=== PATIENT | male | born 1965 | race Caucasian/White ===

== ENCOUNTER 2019-05-24 14:57 | Observation (INO) | payer SELFPAY ==
--- NOTE | 2019-05-24 15:57 | ER Document Report ---
ED Medical Screen (RME) - General Chief Complaint: Leg Pain Stated Complaint: LEG PAIN Time Seen by Provider: 05/24/19 15:53 Primary Care Provider: MIGUEL HUNG MD [Primary Care Provider] - Follow up as needed Notes: Patient is a morbidly obese 53-year-old male history of diabetes presents to the emergency department with cellulitic tissue noted to the left lower extremity. Patient states he was given Keflex and another antibiotic on Wednesday afternoon. [facility] provider placed a marker around the red area. States he has been taking antibiotics as prescribed but the redness has gone past to the marked area which is why he presents to the emergency room. Patient's denying any fevers. States he does have increased pain and swelling in his left lower extremity. Is also noted to have left calf pain. GENERAL: Alert, interacts well. No acute distress. EXTREMITIES: Moves all 4 extremities spontaneously. Generalized swelling noted left lower extremity, large area of erythema noted left lower medial aspect. No obvious fluctuance noted. Pain in left calf. I have greeted and performed a rapid initial assessment of this patient. A comprehensive ED assessment and evaluation of the patient, analysis of test results and completion of the medical decision making process will be conducted by additional ED providers. I have specifically instructed the patient or family members with the patient to immediately return to any nursing staff should anything change in the patient's condition or with their chief complaint. This medical record was dictated with voice recognizing software. There may be grammatical, syntax errors that are unintended. - Related Data Allergies/Adverse Reactions: No Known Allergies Allergy (Verified 05/24/19 15:51) Past Medical History - Past Medical History Cardiac Medical History: Reports: Hx Hypertension Endocrine Medical History: Reports: Hx Diabetes Mellitus Type 2 - Immunizations Immunizations up to date: Yes Hx Diphtheria, Pertussis, Tetanus Vaccination: Yes - will provide here Physical Exam - Vital signs Vitals: Temp Pulse Resp BP Pulse Ox 99.0 F 87 18 138/77 H 96 05/24/19 15:03 05/24/19 15:03 05/24/19 15:03 05/24/19 15:03 05/24/19 15:03 Course - Vital Signs Vital signs: Temp Pulse Resp BP Pulse Ox 99.0 F 87 18 138/77 H 96 05/24/19 15:03 05/24/19 15:03 05/24/19 15:03 05/24/19 15:03 05/24/19 15:03 Doctor's Discharge - Discharge Referrals: MIGUEL HUNG MD [Primary Care Provider] - Follow up as needed
[2019-05-24 16:39] LABS: VENOUS BLOOD BASE EXCESS 0.1 mmol/L; VENOUS BLOOD HCO3 23.5 mmol/L (20-32); VENOUS BLOOD PCO2 34.8 mmHg (35-63); VENOUS BLOOD PH 7.45 (7.30-7.42)
[2019-05-24 16:42] LABS: ABSOLUTE EOSINOPHILS # (AUTO) 0.1 10^3/uL (0.0-0.6); ABSOLUTE LYMPHOCYTES (AUTO) 1.8 10^3/uL (0.5-4.7); ABSOLUTE NEUT (AUTO) 10.9 10^3/uL (1.7-8.2); BASOPHILS % (AUTO) 0.4 % (0-2); EOSINOPHILS % (AUTO) 0.7 % (0-6); HEMATOCRIT 44.2 % (37.9-51.0); HEMOGLOBIN 15.4 g/dL (13.5-17.0); LYMPHOCYTES % (AUTO) 13.1 % (13-45); MEAN CORPUSCULAR HEMOGLOBIN 31.8 pg (27.0-33.4); MEAN CORPUSCULAR HGB CONC 34.8 g/dL (32.0-36.0); MEAN CORPUSCULAR VOLUME 91 fl (80-97); MONOCYTES % (AUTO) 7.3 % (3-13); PLATELET COUNT 187 10^3/uL (150-450); RED BLOOD COUNT 4.83 10^6/uL (4.35-5.55); RED CELL DISTRIBUTION WIDTH 12.9 % (11.5-14.0); SEGMENTED NEUTROPHILS % (AUTO) 78.5 % (42-78); TOTAL CELLS COUNTED % (AUTO) 100 %; WHITE BLOOD COUNT 13.9 10^3/uL (4.0-10.5)
[2019-05-24 16:46] LABS: INTERNATIONAL RATION (INR) 1.14; PROTHROMBIN TIME 14.7 SEC (11.4-15.4)
[2019-05-24 16:56] LABS: ALBUMIN 4.1 g/dL (3.5-5.0); ALKALINE PHOSPHATASE 86 U/L (38-126); ANION GAP 12 (5-19); ASPARTATE AMINO TRANSFERASE 32 U/L (17-59); BILIRUBIN,DIRECT 0.4 mg/dL (0.0-0.4); BILIRUBIN,TOTAL 1.2 mg/dL (0.2-1.3); BLOOD UREA NITROGEN 21 mg/dL (7-20); CALCIUM 9.6 mg/dL (8.4-10.2); CARBON DIOXIDE 26 mmol/L (22-30); CHLORIDE 99 mmol/L (98-107); GLUCOSE 150 mg/dL (75-110); POTASSIUM 4.6 mmol/L (3.6-5.0); TOTAL PROTEIN 7.8 g/dL (6.3-8.2)
[2019-05-24] MEDS ORDERED: MORPHINE SULFATE 10 MG/ML INJ IV ONE (18:09)
[2019-05-24] MEDS ORDERED: CLINDAMYCIN 900 MG/D5W RTU 900 MG/50 ML RTUPB IV ONE (18:09)
--- NOTE | 2019-05-24 18:31 | ER Document Report ---
ED Extremity Problem, Lower - General Chief Complaint: Leg Pain Stated Complaint: LEG PAIN Time Seen by Provider: 05/24/19 15:53 Primary Care Provider: MIGUEL HUNG MD [NO LOCAL MD] - Follow up as needed Notes: 53 y/o male presents with w worsening cellulitis to left lower leg. Patient states he first noticed it Wednesday. Patient has had associated chills and subjective fevers. Patient was seen by on Wednesday and was placed on Keflex and Bactrim. A line was drawn to delineate where the redness was. Patient states he noticed the redness expanding beyond the line. Patient does have a history of diabetes. TRAVEL OUTSIDE OF THE [place] IN LAST 30 DAYS: No - Related Data Allergies/Adverse Reactions: No Known Allergies Allergy (Verified 05/24/19 15:51) Home Medications: [facility] Past Medical History - Social History Smoking Status: Current Some Day Smoker Chew tobacco use (# tins/day): No Frequency of alcohol use: None Drug Abuse: None Family History: Reviewed & Not Pertinent Patient has suicidal ideation: No Patient has homicidal ideation: No - Past Medical History Cardiac Medical History: Reports: Hx Hypertension Endocrine Medical History: Reports: Hx Diabetes Mellitus Type 2 - Immunizations Immunizations up to date: Yes Hx Diphtheria, Pertussis, Tetanus Vaccination: Yes - will provide here Review of Systems - Review of Systems Notes: Constitutional: Positive for subjective fevers and chills. HENT: Negative for sore throat. Eyes: Negative for visual changes. Cardiovascular: Negative for chest pain. Respiratory: Negative for shortness of breath. Gastrointestinal: Negative for abdominal pain, vomiting or diarrhea. Genitourinary: Negative for dysuria. Musculoskeletal: Positive for left lower leg pain and swelling. Negative for back pain. Skin: Negative for rash. Neurological: Negative for headaches, weakness or numbness. 10 point ROS negative except as marked above and in HPI. Physical Exam - Vital signs Vitals: Temp Pulse Resp BP Pulse Ox 99.0 F 87 18 138/77 H 96 05/24/19 15:03 05/24/19 15:03 05/24/19 15:03 05/24/19 15:03 05/24/19 15:03 - Notes Notes: GENERAL: Well-appearing, well-nourished and in no acute distress. HEAD: Atraumatic, normocephalic. EYES: Extraocular movements intact, sclera anicteric, conjunctiva are normal. ENT: TMs normal, nares patent, oropharynx clear without exudates. Moist mucous membranes. NECK: Normal range of motion, supple without lymphadenopathy or JVD. LUNGS: Breath sounds clear to auscultation bilaterally and equal. No wheezes rales or rhonchi. HEART: Regular rate and rhythm without murmurs, rubs or gallops. EXTREMITIES: Left lower leg erythema and calor noted below knee, swelling noted, moderately tender with streaking up towards knee.. NEUROLOGICAL: Cranial nerves II through XII grossly intact. Normal speech, normal gait. PSYCH: Normal mood, normal affect. SKIN: Warm, Dry, normal turgor, no rashes or lesions noted. Course - Re-evaluation Re-evalutation: 05/24/19 53-year-old male presents with worsening cellulitis to left lower leg. Nontoxic in appearance. Mild leukocytosis. History of diabetes. Patient failed outpatient treatment with Keflex and Bactrim. Hospitalist, Dr. Smith, consulted for admission. [employer] Elham Bro to admit patient. - Vital Signs Vital signs: Temp Pulse Resp BP Pulse Ox 99.0 F 87 18 138/77 H 96 05/24/19 15:03 05/24/19 15:03 05/24/19 15:03 05/24/19 15:03 05/24/19 15:03 - Laboratory Result Diagrams: 05/24/19 16:15 05/24/19 16:15 Laboratory results interpreted by me: 05/24/19 05/24/19 05/24/19 16:15 16:15 16:15 WBC 13.9 H Absolute Neuts (auto) 10.9 H Seg Neutrophils % 78.5 H VBG pH 7.45 H VBG pCO2 34.8 L BUN 21 H Glucose 150 H Discharge - Discharge Clinical Impression: Left leg cellulitis Condition: Stable Disposition: ADMITTED OBSERVATION Admitting Provider: Saarh Unit Admitted: Medical Floor Referrals: MIGUEL HUNG MD [NO LOCAL MD] - Follow up as needed
[2019-05-24] MEDS ORDERED: MAGNESIUM HYDROXIDE SUSP 30 ML UDCUP PO PRN (18:47)
[2019-05-24] MEDS ORDERED: IPRATROPIUM/ALBUTEROL 0.5-2.5 MG/3 ML AMPUL NEB PRN (18:47)
[2019-05-24] MEDS ORDERED: ACETAMINOPHEN 325 MG TABLET PO PRN (18:47)
[2019-05-24] MEDS ORDERED: PROMETHAZINE HCL INJ 25 MG/1 ML VIAL IV PRN (18:47)
[2019-05-24] MEDS ORDERED: ONDANSETRON HCL INJ/PF 4 MG/2 ML SDV IV PRN (18:47)
[2019-05-24] MEDS ORDERED: MAG HYDROX/AL HYDROX/SIMETH SUSP 30 ML UDCUP PO PRN (18:47)
[2019-05-24] MEDS ORDERED: TEMAZEPAM 7.5 MG CAPSULE PO PRN (18:47)
[2019-05-24] MEDS ORDERED: DEXTROSE 40% GEL 15 GM TUBE PO PRN ×2 (18:47)
[2019-05-24] MEDS ORDERED: ALBUTEROL SULFATE 0.083% NEB 2.5 MG/3 ML AMPUL NEB PRN (18:47)
[2019-05-24] MEDS ORDERED: GLUCAGON,HUMAN RECOMB 1 MG INJ IM PRN (18:47)
[2019-05-24] MEDS ORDERED: NORMAL SALINE 1000 ML 1,000 ML IV PRN (18:47)
[2019-05-24] MEDS ORDERED: DEXTROSE 50%-WATER 25 GM/50 ML DISP.SYRIN IV PRN ×2 (18:47)
[2019-05-24] MEDS ORDERED: HYDRALAZINE HCL INJ/PF 20 MG/1 ML SDV IV PRN (18:51)
[2019-05-24] MEDS ORDERED: NICOTINE 21 MG/24 HR PATCH.TD24 TD PRN (18:58)
--- NOTE | 2019-05-24 18:58 | PDOC H&P ---
History of Present Illness Patient complains of: Left lower extremity erythema and pain History of Present Illness: TOMASA HERNANDEZ is a 53 year old male with a past medical history of DM 2, obesity, tobacco dependence with continuous use who presents to the emergency department today for complaint of left lower extremity erythema, edema, and tenderness. Patient was seen by urgent care and started on Bactrim and Keflex 3 days ago for cellulitis. He cellulitis was marked with a skin marker and has clearly spread more proximally and is now circumferential. Patient reports low- grade temperatures at home with slight nausea and generalized malaise. Evaluation by the emergency department revealed mild leukocytosis, normal coags, essentially unremarkable chemistry. A venous Doppler was completed; formalize report pending but per food safety technician negative for DVT. He was provided IV clindamycin and is referred to the hospitalist service for admission and management above-stated complaints of findings Past Medical History Cardiac Medical History: Reports: Hypertension Pulmonary Medical History: Reports: None EENT Medical History: Reports: None Neurological Medical History: Reports: None Endocrine Medical History: Reports: Diabetes Mellitus Type 2 Renal/ Medical History: Reports: None GI Medical History: Reports: None Musculoskeltal Medical History: Reports: None Skin Medical History: Reports: None Psychiatric Medical History: Reports: Tobacco Dependency Traumatic Medical History: Reports: None Hematology: Reports: None Infectious Medical History: Reports: None Past Surgical History Past Surgical History: Reports: None Social History Information Source: Patient Lives with: Alone Smoking Status: Current Every Day Smoker Cigarettes Packs Per Day: 1.5 Electronic Cigarette use?: No Frequency of Alcohol Use: None Hx Recreational Drug Use: No Drugs: None Hx Prescription Drug Abuse: No - Advance Directive Resuscitation Status: Full Code Family History Family History: Reviewed & Not Pertinent Parental Family History Reviewed: Yes Children Family History Reviewed: Yes Sibling(s) Family History Reviewed.: Yes Medication/Allergy Home Medications: Cephalexin Monohydrate [Keflex 500 mg Capsule] 500 mg PO Q6H 5 Days capsule 03/01/14 Metformin HCl [Glucophage] 500 mg PO AC 03/01/14 Oxycodone HCl/Acetaminophen [Percocet 5-325 mg Tablet] 1 - 2 tab PO Q4H PRN #25 tablet 03/01/14 Clindamycin HCl [Cleocin 300 mg Capsule] 300 mg PO QID #28 capsule 03/04/14 Oxycodone HCl [Oxycontin Ir 5 Mg Tablet] 1 - 2 mg PO Q4H PRN #25 tablet 03/04/14 Oxycodone HCl/Acetaminophen [Percocet 5-325 mg Tablet] 1 - 2 tab PO ASDIR PRN #15 tablet 03/06/14 Allergies/Adverse Reactions: No Known Allergies Allergy (Verified 05/24/19 15:51) Review of Systems Constitutional: PRESENT: anorexia, fatigue, fever(s). ABSENT: chills, hea dache(s), weight gain, weight loss Eyes: ABSENT: visual disturbances Ears: ABSENT: hearing changes Cardiovascular: ABSENT: chest pain, dyspnea on exertion, edema, orthropnea, palpitations Respiratory: ABSENT: cough, hemoptysis Gastrointestinal: ABSENT: abdominal pain, constipation, diarrhea, hematemesis, hematochezia, nausea, vomiting Genitourinary: ABSENT: dysuria, hematuria Musculoskeletal: ABSENT: joint swelling Integumentary: PRESENT: as per HPI, erythema. ABSENT: rash, wounds Neurological: ABSENT: abnormal gait, abnormal speech, confusion, dizziness, focal weakness, syncope Psychiatric: ABSENT: anxiety, depression, homidical ideation, suicidal ideation Endocrine: ABSENT: cold intolerance, heat intolerance, polydipsia, polyuria Hematologic/Lymphatic: ABSENT: easy bleeding, easy bruising Physical Exam Vital Signs: Temp Pulse Resp BP Pulse Ox 99.0 F 87 18 138/77 H 96 05/24/19 15:03 05/24/19 15:03 05/24/19 15:03 05/24/19 15:03 05/24/19 15:03 Intake & Output 05/23/19 05/24/19 05/25/19 06:59 06:59 06:59 Weight 127.006 kg General appearance: PRESENT: no acute distress, cooperative, disheveled, obese, well-developed, well-nourished Head exam: PRESENT: atraumatic, normocephalic Eye exam: PRESENT: conjunctiva pink, EOMI, PERRLA. ABSENT: scleral icterus Ear exam: PRESENT: normal external ear exam Mouth exam: PRESENT: moist, tongue midline Teeth exam: PRESENT: poor dentation Respiratory exam: PRESENT: clear to auscultation hero, symmetrical, unlabored. ABSENT: rales, rhonchi, wheezes Cardiovascular exam: PRESENT: RRR, +S1, +S2. ABSENT: diastolic murmur, rubs, systolic murmur Pulses: PRESENT: normal dorsalis pedis pul Vascular exam: PRESENT: normal capillary refill GI/Abdominal exam: PRESENT: normal bowel sounds, soft. ABSENT: distended, guarding, mass, organolmegaly, rebound, tenderness Rectal exam: PRESENT: deferred Extremities exam: PRESENT: full ROM. ABSENT: calf tenderness, clubbing, pedal edema Neurological exam: PRESENT: alert, awake, oriented to person, oriented to place, oriented to time, oriented to situation, CN II-XII grossly intact. ABSENT: motor sensory deficit Psychiatric exam: PRESENT: appropriate affect, normal mood. ABSENT: homicidal ideation, suicidal ideation Skin exam: PRESENT: dry, erythema - Circumferential erythema to left lower ext remity extending to the knee., warm. ABSENT: cyanosis, rash Results Laboratory Results: 05/24/19 16:15 05/24/19 16:15 05/24/19 05/24/19 05/24/19 16:15 16:15 16:15 WBC 13.9 H RBC 4.83 Hgb 15.4 Hct 44.2 MCV 91 MCH 31.8 MCHC 34.8 RDW 12.9 Plt Count 187 Seg Neutrophils % 78.5 H VBG pH 7.45 H VBG pCO2 34.8 L VBG HCO3 23.5 VBG Base Excess 0.1 Sodium 137.4 Potassium 4.6 Chloride 99 Carbon Dioxide 26 Anion Gap 12 BUN 21 H Creatinine 1.12 Est GFR ( Amer) > 60 Glucose 150 H Calcium 9.6 Total Bilirubin 1.2 AST 32 Alkaline Phosphatase 86 Total Protein 7.8 Albumin 4.1 Assessment and Plan - Diagnosis (1) Left leg cellulitis Is this a current diagnosis for this admission?: Yes Plan: Patient is admitted to the medical floor. We will continue IV clindamycin Keep extremity elevated. Analgesics and antiemetics as needed. (2) Diabetes Qualifiers: Diabetes mellitus type: type 2 Diabetes mellitus mcc insulin use: without mcc use Is this a current diagnosis for this admission?: Yes Plan: We will check A1c with a.m. lab work. Patient reports that he is typically on metformin but has been out for several months due to loss of PCP. He is placed on a consistent carb diet. Accu-Cheks before meals and at bedtime with Humalog for sliding scale coverage. Hypoglycemia protocol in place. Was a registered dietitian to meet with patient. (3) Obesity Qualifiers: Obesity classification: adult class 2 (BMI 35 - 39.9) Is this a current diagnosis for this admission?: Yes Plan: BMI of 35. Less registered dietitian to meet with patient. Consistent carb diet. (4) Tobacco dependence Is this a current diagnosis for this admission?: Yes Plan: Smoking cessation encouraged. Nicotine replacement therapies provided. - Time Time Spent with patient: 35 or more minutes Medications reviewed and adjusted accordingly: Yes Anticipated discharge: Home Within: within 24 hours
--- NOTE | 2019-05-24 19:43 | RADIOLOGY REPORT (SQ) ---
EXAM DESCRIPTION: VENOUS UNILATERAL LOWER COMPLETED DATE/TIME: 05/24/2019 7:27 pm REASON FOR STUDY: left lower leg calf pain/swelling/infx COMPARISON: None. TECHNIQUE: Dynamic and static shaw scale and color images acquired of the left leg venous system. Se lected spectral images acquired with additional compression and augmentation maneuvers. The contralat eral common femoral vein and saphenofemoral junction were also imaged. Images stored on PACS. LIMITATIONS: None. FINDINGS: COMMON FEMORAL: Normal phasicity, compression and augmentation. No visualized echogenic ma terial on shaw scale. No defects on color images. FEMORAL: Normal compression and augmentation. No visualized echogenic material on shaw scale. No defe cts on color images. POPLITEAL: Normal compression, augmentation. No visualized echogenic material on shaw scale. No defec ts on color images. CALF VESSELS: Normal compression, augmentation. No visualized echogenic material on shaw scale. No de fects on color images. GSV and SSV: Normal compression, augmentation. No visualized echogenic material on shaw scale. No def ects on color images. ANY DEEP VENOUS INSUFFICIENCY: Not evaluated. ANY EVIDENCE OF POPLITEAL CYST: No. OTHER: No other significant finding. CONTRALATERAL COMMON FEMORAL VEIN AND SAPHENOFEMORAL JUNCTION: Normal phasicity, compression and augmentation. No visualized echogenic material on shaw scale. No de fects on color images. IMPRESSION: No DVT. TECHNICAL DOCUMENTATION: JOB ID: [id number] [id number] 2010 [employer]- All Rights Reserved Reading location - IP/workstation name: [employer]
[2019-05-24] MEDS ORDERED: MORPHINE SULFATE 10 MG/ML INJ ONE (19:59)
--- NOTE | 2019-05-24 20:28 | EKG REPORT ---
SEVERITY:- BORDERLINE ECG - SINUS RHYTHM PROBABLE LEFT ATRIAL ABNORMALITY : Confirmed by: Bonifacio Burks MD 24-May-2019 20:27:10
[2019-05-24] MEDS: INSULIN LISPRO 100 UNIT/ML 3 ML VIAL SUBCUT SCH (23:37)
[2019-05-24] MEDS: HEPARIN SOD (PORCINE) 5,000 UNIT/ML 1 ML VIAL SUBCUT SCH (23:37)
[2019-05-24] MEDS: FAMOTIDINE 20 MG TABLET PO SCH (23:38)
[2019-05-25] MEDS: OXYCODONE-ACETAMINOPHEN 5-325 MG TABLET PO PRN ×4 (00:36→17:52)
[2019-05-25] MEDS: CLINDAMYCIN 600 MG/D5W RTU 600 MG/50 ML RTUPB IV SCH ×3 (02:01→17:52)
[2019-05-25] MEDS: HEPARIN SOD (PORCINE) 5,000 UNIT/ML 1 ML VIAL SUBCUT SCH ×3 (06:34→21:41)
[2019-05-25] MEDS: INSULIN LISPRO 100 UNIT/ML 3 ML VIAL SUBCUT SCH ×4 (07:56→21:41)
[2019-05-25] MEDS: FAMOTIDINE 20 MG TABLET PO SCH ×2 (10:17→21:41)
[2019-05-25] MEDS: DOCUSATE SODIUM 100 MG CAPSULE PO SCH (10:17)
[2019-05-25 15:21] LABS: HEMATOCRIT 35.4 % (37.9-51.0); MEAN CORPUSCULAR HEMOGLOBIN 32.3 pg (27.0-33.4); MEAN CORPUSCULAR HGB CONC 35.7 g/dL (32.0-36.0); MEAN CORPUSCULAR VOLUME 91 fl (80-97); PLATELET COUNT 194 10^3/uL (150-450); RED BLOOD COUNT 3.91 10^6/uL (4.35-5.55); RED CELL DISTRIBUTION WIDTH 12.8 % (11.5-14.0); WHITE BLOOD COUNT 8.2 10^3/uL (4.0-10.5)
[2019-05-25 15:39] LABS: HEMOGLOBIN 12.6 g/dL (13.5-17.0)
[2019-05-25 15:44] LABS: ANION GAP 11 (5-19); BLOOD UREA NITROGEN 18 mg/dL (7-20); CALCIUM 8.7 mg/dL (8.4-10.2); CARBON DIOXIDE 25 mmol/L (22-30); CHLORIDE 99 mmol/L (98-107); GLUCOSE 174 mg/dL (75-110); POTASSIUM 4.1 mmol/L (3.6-5.0)
[2019-05-25] MEDS ORDERED: NORMAL SALINE 1000 ML 1,000 ML IV PRN (18:38)
--- NOTE | 2019-05-25 18:38 | PDOC PROGRESS REPORT ---
Subjective Progress Note for:: 05/25/19 Subjective:: TOMASA HERNANDEZ is a 53 year old male with a past medical history of DM 2, obesity, tobacco dependence with continuous use who was admitted 05/24/19 for LLE cellulitis. Patient was seen on morning rounds. He was found resting in bed, comfortably, on room air. He reports improved pain, erythema, and edema. He denies fever, chills, chest pain, dyspnea, abdominal pain, and nausea. He has no new questions or concerns. No concerns per nursing. Reason For Visit: CELLULITIS Physical Exam Vital Signs: Temp Pulse Resp BP Pulse Ox 98.6 F 72 16 133/79 H 97 05/25/19 16:08 05/25/19 16:08 05/25/19 16:08 05/25/19 16:08 05/25/19 16:08 Intake & Output 05/24/19 05/25/19 05/26/19 06:59 06:59 06:59 Intake Total 100 1130 Balance 100 1130 Weight 111 kg General appearance: PRESENT: no acute distress, cooperative, obese, well- developed, well-nourished Head exam: PRESENT: atraumatic, normocephalic Eye exam: PRESENT: conjunctiva pink, EOMI, PERRLA. ABSENT: scleral icterus Ear exam: PRESENT: normal external ear exam Mouth exam: PRESENT: moist, tongue midline Respiratory exam: PRESENT: clear to auscultation hero, symmetrical, unlabored. ABSENT: rales, rhonchi, wheezes Cardiovascular exam: PRESENT: RRR, +S1, +S2. ABSENT: diastolic murmur, rubs, systolic murmur Pulses: PRESENT: normal dorsalis pedis pul Vascular exam: PRESENT: normal capillary refill Rectal exam: PRESENT: deferred Extremities exam: PRESENT: full ROM, tenderness - LLE. ABSENT: calf tenderness, clubbing, pedal edema Musculoskeletal exam: PRESENT: ambulatory Neurological exam: PRESENT: alert, awake, oriented to person, oriented to place, oriented to time, oriented to situation, CN II-XII grossly intact. ABSENT: motor sensory deficit Psychiatric exam: PRESENT: appropriate affect, normal mood. ABSENT: homicidal ideation, suicidal ideation Skin exam: PRESENT: dry, erythema - decreased in intensity and area; significant improvement, warm. ABSENT: cyanosis, intact, rash Results Laboratory Results: 05/25/19 14:30 05/25/19 14:30 05/25/19 05/25/19 14:30 14:30 WBC 8.2 RBC 3.91 L Hgb 12.6 L D Hct 35.4 L MCV 91 MCH 32.3 MCHC 35.7 RDW 12.8 Plt Count 194 Sodium 134.8 L Potassium 4.1 Chloride 99 Carbon Dioxide 25 Anion Gap 11 BUN 18 Creatinine 0.98 Est GFR ( Amer) > 60 Glucose 174 H Calcium 8.7 Impressions: Venous Doppler Study 05/24/19 15:54 IMPRESSION: No DVT. Assessment and Plan - Diagnosis (1) Left leg cellulitis Is this a current diagnosis for this admission?: Yes Plan: Improved. Patient is admitted to the medical floor. We will continue IV clindamycin; plan to transition to p.o. clindamycin tomorrow. Keep extremity elevated. Analgesics and antiemetics as needed. (2) Diabetes Qualifiers: Diabetes mellitus type: type 2 Diabetes mellitus prison insulin use: without prison use Is this a current diagnosis for this admission?: Yes Plan: A1c 7.9% He is placed on a consistent carb diet. Accu-Cheks before meals and at bedtime with Humalog for sliding scale coverage. Hypoglycemia protocol in place. Was a registered dietitian to meet with patient. Plan to d/c on metformin (3) Obesity Qualifiers: Obesity classification: adult class 2 (BMI 35 - 39.9) Is this a current diagnosis for this admission?: Yes Plan: BMI of 35. Less registered dietitian to meet with patient. Consistent carb diet. (4) Tobacco dependence Is this a current diagnosis for this admission?: Yes Plan: Smoking cessation encouraged. Nicotine replacement therapies provided. - Time Time Spent with patient: 25-34 minutes Medications reviewed and adjusted accordingly: Yes Anticipated discharge: Home Within: within 24 hours
[2019-05-26] MEDS: CLINDAMYCIN 600 MG/D5W RTU 600 MG/50 ML RTUPB IV SCH ×2 (01:28→10:36)
[2019-05-26] MEDS: HEPARIN SOD (PORCINE) 5,000 UNIT/ML 1 ML VIAL SUBCUT SCH (06:12)
[2019-05-26] MEDS: INSULIN LISPRO 100 UNIT/ML 3 ML VIAL SUBCUT SCH ×2 (08:03→13:42)
[2019-05-26] MEDS: FAMOTIDINE 20 MG TABLET PO SCH (10:37)
[2019-05-26] MEDS: DOCUSATE SODIUM 100 MG CAPSULE PO SCH (10:37)
[2019-05-26 13:29] VITALS: BP 126/50
--- NOTE | 2019-05-28 18:00 | PDOC DISCHARGE SUMMARY ---
Impression - Admit/DC Date/PCP Admission Date/Primary Care Provider: 05/24/19 18:53 Discharge Date: 05/26/19 - Discharge Diagnosis (1) Left leg cellulitis Is this a current diagnosis for this admission?: Yes (2) Diabetes Is this a current diagnosis for this admission?: Yes (3) Obesity Is this a current diagnosis for this admission?: Yes (4) Tobacco dependence Is this a current diagnosis for this admission?: Yes - Additional Information Resuscitation Status: Full Code Discharge Diet: Diabetic Discharge Activity: Activity As Tolerated, Balance Activity w/Rest Referrals: [facility] [Outside] (PER CLINIC STAFF THERE ARE NO APPTS. AVAILABLE UNTIL AFTER . PLEASE CALL AND SCHEDULE YOUR APPT. ANYTIME AFTER ) Prescriptions: Clindamycin HCl [Cleocin 300 mg Capsule] 300 mg PO Q6 #20 capsule Mineral Oil/Petrolatum,White [Eucerin Cream 114 Gm/Jar] 1 applic TP BID #1 jar Metformin HCl [Glucophage] 500 mg PO BIDACBSP PRN #60 tablet PRN Reason: Nicotine [Nicoderm 21 mg/24 Hr Transderm Patch] 1 each TD DAILYP PRN #30 patch.td24 PRN Reason: Oxycodone HCl/Acetaminophen [Percocet 5-325 mg Tablet] 1 tab PO Q6HP PRN #12 tablet PRN Reason: Home Medications: Acetaminophen [Tylenol 325 mg Tablet] 650 mg PO Q4HP PRN tablet 05/26/19 Clindamycin HCl [Cleocin 300 mg Capsule] 300 mg PO Q6 #20 capsule 05/26/19 Docusate Sodium [Colace 100 mg Capsule] 100 mg PO DAILY capsule 05/26/19 Metformin HCl [Glucophage] 500 mg PO BIDACBSP PRN #60 tablet 05/26/19 Mineral Oil/Petrolatum,White [Eucerin Cream 114 Gm/Jar] 1 applic TP BID #1 jar 05/26/19 Nicotine [Nicoderm 21 mg/24 Hr Transderm Patch] 1 each TD DAILYP PRN #30 patch.td24 05/26/19 Oxycodone HCl/Acetaminophen [Percocet 5-325 mg Tablet] 1 tab PO Q6HP PRN #12 tablet 05/26/19 History of Present Illiness History of Present Illness: TOMASA HERNANDEZ is a 53 year old male with a past medical history of DM 2, obesity, tobacco dependence with continuous use who presents to the emergency department today for complaint of left lower extremity erythema, edema, and tenderness. Patient was seen by urgent care and started on Bactrim and Keflex 3 days ago for cellulitis. He cellulitis was marked with a skin marker and has clearly spread more proximally and is now circumferential. Patient reports low- grade temperatures at home with slight nausea and generalized malaise. Evaluation by the emergency department revealed mild leukocytosis, normal coags, essentially unremarkable chemistry. A venous Doppler was completed; formalize report pending but per pearl technician negative for DVT. He was provided IV clindamycin and is referred to the hospitalist service for admission and management above-stated complaints of findings Hospital Course Hospital Course: The patient was admitted to the medical floor. He is provided IV fluids and empirically placed on IV clindamycin. His left lower exterminate erythema, edema, and pain significantly improved while on Clindamycin. The patient's A1c was found to be 7.9. Patient had the opportunity to meet with the registered account administrator. The associate merchandise planner has made arrangements for the patient to receive prescription assistance through the [facility]. He is discharged home in stable condition. Is advised to follow-up with his primary care within 1 week. He is instructed to complete his course of antibiotic therapy. He is encouraged to start using Eucerin cream twice daily to his lower legs and any other areas with dry flaky cracked skin. He is encouraged to follow a consistent carb diet and to take his diabetic medications as prescribed. He is instructed to drink plenty water. He is encouraged to return the emergency department as needed for concerning symptoms Physical Exam Vital Signs: Temp Pulse Resp BP Pulse Ox 97.8 F 67 17 131/62 H 97 05/26/19 11:25 05/26/19 11:25 05/26/19 11:25 05/26/19 11:25 05/26/19 11:25 General appearance: PRESENT: no acute distress, cooperative, obese, well-de veloped, well-nourished Head exam: PRESENT: atraumatic, normocephalic Eye exam: PRESENT: conjunctiva pink, EOMI, PERRLA. ABSENT: scleral icterus Mouth exam: PRESENT: moist, tongue midline Teeth exam: PRESENT: poor dentation Respiratory exam: PRESENT: clear to auscultation hero, symmetrical, unlabored. ABSENT: rales, rhonchi, wheezes Cardiovascular exam: PRESENT: RRR, +S1, +S2. ABSENT: diastolic murmur, rubs, systolic murmur Pulses: PRESENT: normal dorsalis pedis pul Vascular exam: PRESENT: normal capillary refill GI/Abdominal exam: PRESENT: normal bowel sounds, soft. ABSENT: distended, guarding, mass, organolmegaly, rebound, tenderness Rectal exam: PRESENT: deferred Extremities exam: PRESENT: full ROM. ABSENT: calf tenderness, clubbing, pedal edema Neurological exam: PRESENT: alert, awake, oriented to person, oriented to place, oriented to time, oriented to situation, CN II-XII grossly intact. ABSENT: motor sensory deficit Psychiatric exam: PRESENT: appropriate affect, normal mood. ABSENT: homicidal ideation, suicidal ideation Skin exam: PRESENT: dry - Widespread dry/cracked skin; ?Eczema, erythema - Slight erythema to left lower extremity; significantly improved, warm. ABSENT: cyanosis, rash Results Laboratory Results: WBC 8.2 10^3/uL (4.0-10.5) 05/25/19 14:30 RBC 3.91 10^6/uL (4.35-5.55) L 05/25/19 14:30 Hgb 12.6 g/dL (13.5-17.0) L D 05/25/19 14:30 Hct 35.4 % (37.9-51.0) L 05/25/19 14:30 MCV 91 fl (80-97) 05/25/19 14:30 MCH 32.3 pg (27.0-33.4) 05/25/19 14:30 MCHC 35.7 g/dL (32.0-36.0) 05/25/19 14:30 RDW 12.8 % (11.5-14.0) 05/25/19 14:30 Plt Count 194 10^3/uL (150-450) 05/25/19 14:30 Lymph % (Auto) 13.1 % (13-45) 05/24/19 16:15 [place] % (Auto) 7.3 % (3-13) 05/24/19 16:15 Eos % (Auto) 0.7 % (0-6) 05/24/19 16:15 Baso % (Auto) 0.4 % (0-2) 05/24/19 16:15 Absolute Neuts (auto) 10.9 10^3/uL (1.7-8.2) H 05/24/19 16:15 Absolute Lymphs (auto) 1.8 10^3/uL (0.5-4.7) 05/24/19 16:15 Absolute Monos (auto) 1.0 10^3/uL (0.1-1.4) 05/24/19 16:15 Absolute Eos (auto) 0.1 10^3/uL (0.0-0.6) 05/24/19 16:15 Absolute Basos (auto) 0.0 10^3/uL (0.0-0.2) 05/24/19 16:15 Seg Neutrophils % 78.5 % (42-78) H 05/24/19 16:15 PT 14.7 SEC (11.4-15.4) 05/24/19 16:15 INR 1.14 05/24/19 16:15 VBG pH 7.45 (7.30-7.42) H 05/24/19 16:15 VBG pCO2 34.8 mmHg (35-63) L 05/24/19 16:15 VBG HCO3 23.5 mmol/L (20-32) 05/24/19 16:15 VBG Base Excess 0.1 mmol/L 05/24/19 16:15 Sodium 134.8 mmol/L (137-145) L 05/25/19 14:30 Potassium 4.1 mmol/L (3.6-5.0) 05/25/19 14:30 Chloride 99 mmol/L (98-107) 05/25/19 14:30 Carbon Dioxide 25 mmol/L (22-30) 05/25/19 14:30 Anion Gap 11 (5-19) 05/25/19 14:30 BUN 18 mg/dL (7-20) 05/25/19 14:30 Creatinine 0.98 mg/dL (0.52-1.25) 05/25/19 14:30 Est GFR ( Amer) > 60 (>60) 05/25/19 14:30 Est GFR (MDRD) Non-Af > 60 (>60) 05/25/19 14:30 Glucose 174 mg/dL (75-110) H 05/25/19 14:30 POC Glucose 178 mg/dL (70-110) H 05/26/19 11:45 Hemoglobin A1c % 7.9 % (4.7-6.0) H 05/25/19 14:30 Lactic Acid (Sepsis) 1.7 mmol/L (0.7-2.1) 05/24/19 16:15 Calcium 8.7 mg/dL (8.4-10.2) 05/25/19 14:30 Total Bilirubin 1.2 mg/dL (0.2-1.3) 05/24/19 16:15 Direct Bilirubin 0.4 mg/dL (0.0-0.4) 05/24/19 16:15 Neonat Total Bilirubin Not Reportable 05/24/19 16:15 Neonat Direct Bilirubin Not Reportable 05/24/19 16:15 Neonat Indirect Bili Not Reportable 05/24/19 16:15 AST 32 U/L (17-59) 05/24/19 16:15 ALT 32 U/L (<50) 05/24/19 16:15 Alkaline Phosphatase 86 U/L (38-126) 05/24/19 16:15 Total Protein 7.8 g/dL (6.3-8.2) 05/24/19 16:15 Albumin 4.1 g/dL (3.5-5.0) 05/24/19 16:15 Impressions: Venous Doppler Study 05/24/19 15:54 IMPRESSION: No DVT. Plan Plan of Treatment: The patient has been instructed to follow-up with his primary care provider within 1 week; he has been provided resources to the community care in clinic. He is instructed to complete his full course of antibiotic therapy. He is advised to take his medications as prescribed. Eat a consistent carb diet and drink plenty of water. He is encouraged to return to the emergency department as needed for concerning symptoms. Time Spent: Greater than 30 Minutes Stroke Is this a Stroke Patient?: No Acute Heart Failure - Is this a Heart Failure Patient?: No
== END 2019-05-26 15:20 | disposition home or self-care (01) ==
LOC: ER 14:57 → EH 18:53 → 4S 22:30
PROVIDERS: ADMIT Internal Medicine; ATTEND Internal Medicine
DX: L03.116 Cellulitis of left lower limb (principal); E11.9 Type 2 diabetes mellitus without complications; E66.9 Obesity, unspecified; F17.210 Nicotine dependence, cigarettes, uncomplicated; R11.0 Nausea; D72.829 Elevated white blood cell count, unspecified; R63.0 Anorexia; I10 Essential (primary) hypertension; Z68.35 Body mass index [BMI] 35.0-35.9, adult; Z91.14 Patient's other noncompliance with medication regimen
CPT/HCPCS: 93005; 99284; 96375; 96365; 36415 ×2; 87040; 82962 ×3; 85025; 85027; 85610; 80048; 80053; 83036; 82803; 83605; 93971; 93010; G0378 ×4; J1644 ×3; J3490; J1815 ×3; J2270; J7030

== ENCOUNTER 2019-07-03 19:35 | Inpatient (IN) | payer SELFPAY ==
[2019-07-03] MEDS ORDERED: RINGERS LACTATED IV ONE (20:19)
[2019-07-03] MEDS ORDERED: CEFTRIAXONE 1 GM/D5W RTU 1 GM/50 ML RTUPB IV ONE (20:19)
--- NOTE | 2019-07-03 20:21 | ER Document Report ---
ED Medical Screen (RME) - General Stated Complaint: LOWER LEG PAIN Time Seen by Provider: 07/03/19 20:16 Mode of Arrival: Wheelchair Information source: Patient Notes: This 53-year-old male with history of diabetes and history of cellulitis to the left lower antic presents emergency department with erythema swelling warmth to the left lower leg. Temperature is 103 patient is tachycardia. Septic work-up ordered. Patient reports he was admitted in the hospital around [facility] for the same thing. I have greeted and performed a rapid initial assessment of this patient. A comprehensive ED assessment and evaluation of the patient, analysis of test results and completion of the medical decision making process will be conducted by additional ED providers. TRAVEL OUTSIDE OF THE [place] IN LAST 30 DAYS: No - Related Data Allergies/Adverse Reactions: No Known Allergies Allergy (Verified 05/24/19 15:51) Past Medical History - Past Medical History Cardiac Medical History: Denies: Hx Congestive Heart Failure, Hx Heart Attack, Hx Hypertension Pulmonary Medical History: Reports: Hx Pneumonia Denies: Hx Asthma, Hx Bronchitis, Hx COPD, Hx Tuberculosis Neurological Medical History: Denies: Hx Seizures, Hx Parkinson's Disease Endocrine Medical History: Reports: Hx Diabetes Mellitus Type 2 Renal/ Medical History: Denies: Hx Benign Prostatic Hyperplasia, Hx End Stage Renal Disease, Hx Kidney Stones GI Medical History: Reports: Hx Gastroesophageal Reflux Disease. Denies: Hx Cirrhosis, Hx Ulcer Musculoskeltal Medical History: Denies Hx Arthritis, Denies Hx Multiple Sclerosis Psychiatric Medical History: Denies: Hx Bipolar Disorder, Hx Depression, Hx Schizophrenia - Immunizations Immunizations up to date: Yes Hx Diphtheria, Pertussis, Tetanus Vaccination: Yes - will provide here Physical Exam - Vital signs Vitals: Temp Pulse Resp BP Pulse Ox 103.0 F H 120 H 16 148/74 H 94 07/03/19 19:58 07/03/19 19:58 07/03/19 19:58 07/03/19 19:58 07/03/19 19:58 Course - Vital Signs Vital signs: Temp Pulse Resp BP Pulse Ox 103.0 F H 120 H 16 148/74 H 94 07/03/19 19:58 07/03/19 19:58 07/03/19 19:58 07/03/19 19:58 07/03/19 19:58
[2019-07-03] MEDS ORDERED: ACETAMINOPHEN 325 MG TABLET PO ONE (21:26)
[2019-07-03 21:29] LABS: HEMATOCRIT 43.7 % (37.9-51.0); HEMOGLOBIN 15.1 g/dL (13.5-17.0); MEAN CORPUSCULAR HGB CONC 34.5 g/dL (32.0-36.0); MEAN CORPUSCULAR VOLUME 90 fl (80-97); PLATELET COUNT 225 10^3/uL (150-450); RED BLOOD COUNT 4.86 10^6/uL (4.35-5.55); RED CELL DISTRIBUTION WIDTH 13.9 % (11.5-14.0); WHITE BLOOD COUNT 17.6 10^3/uL (4.0-10.5)
--- NOTE | 2019-07-03 21:32 | ER Document Report ---
ED Extremity Problem, Lower - General Chief Complaint: Leg Pain Stated Complaint: LOWER LEG PAIN Time Seen by Provider: 07/03/19 20:16 Mode of Arrival: Wheelchair Information source: Patient Notes: 53-year-old male presented to ED for complaint of pain swelling redness to his left lower leg. He came to the emergency room today for the redness swelling and a temperature of 103. He is tachycardic on initial assessment. He states he has not had any Tylenol in several hours. Septic work-up was started I have ordered his Tylenol. He states he was admitted to the hospital before Thanksgiv ing for similar symptoms stances. He states his primary care doctor is Dr. Chaudhry. His Accu-Chek is 169 at this time. He does have IV fluids running antibiotics have been ordered labs have been started. TRAVEL OUTSIDE OF THE [place] IN LAST 30 DAYS: No - HPI Patient complains to provider of: Pain, Swelling Location: Leg Occurred: Yesterday Where: Home Onset/Duration: Gradual Quality of pain: Achy Severity: Moderate Pain Level: 4 Recent injury: No Associated symptoms: Painful ambulation Exacerbated by: Hanging down, Movement, Walking Relieved by: Nothing - Related Data Allergies/Adverse Reactions: No Known Allergies Allergy (Verified 07/03/19 20:21) Home Medications: metformin Past Medical History - General Information source: Patient - Social History Smoking Status: Current Every Day Smoker Cigarette use (# per day): Yes - 1-1/2 pack/day Chew tobacco use (# tins/day): No Smoking Education Provided: Yes - 4 minutes Frequency of alcohol use: None Drug Abuse: None Lives with: Family Family History: Reviewed & Not Pertinent Patient has suicidal ideation: No Patient has homicidal ideation: No - Past Medical History Cardiac Medical History: Reports: Hx Peripheral Vascular Disease Pulmonary Medical History: Reports: Hx Pneumonia EENT Medical History: Reports: None Neurological Medical History: Reports: None Endocrine Medical History: Reports: Hx Diabetes Mellitus Type 2 Renal/ Medical History: Reports: None Malignancy Medical History: Reports None GI Medical History: Reports: Hx Gastroesophageal Reflux Disease Musculoskeletal Medical History: Reports None Skin Medical History: Reports Hx Cellulitis Psychiatric Medical History: Reports: None Traumatic Medical History: Reports: None Infectious Medical History: Reports: None Surgical Hx: Negative Past Surgical History: Reports: None - Immunizations Immunizations up to date: Yes Hx Diphtheria, Pertussis, Tetanus Vaccination: Yes - will provide here Review of Systems - Review of Systems Constitutional: Chills, Fever, Recent illness EENT: No symptoms reported Cardiovascular: Other - Tachycardic Respiratory: No symptoms reported Gastrointestinal: No symptoms reported Genitourinary: No symptoms reported Male Genitourinary: No symptoms reported Musculoskeletal: Leg swelling - left lower leg Skin: Other - Very inflamed painful Hematologic/Lymphatic: Other - Cellulitis pain inflamed left lower leg Neurological/Psychological: No symptoms reported -: Yes All other systems reviewed and negative Physical Exam - Vital signs Vitals: Pulse Ox 98 07/03/19 19:37 Interpretation: Hypertensive, Tachycardic, Febrile - General General appearance: Appears well, Alert - HEENT Head: Normocephalic, Atraumatic Eyes: Normal Pupils: PERRL - Respiratory Respiratory status: No respiratory distress Chest status: Nontender Breath sounds: Normal Chest palpation: Normal - Cardiovascular Rhythm: Regular Heart sounds: Normal auscultation Murmur: No - Abdominal Inspection: Normal Distension: No distension Bowel sounds: Normal Tenderness: Nontender Organomegaly: No organomegaly - Back Back: Normal, Nontender - Extremities General upper extremity: Normal inspection, Nontender, Normal color, Normal ROM, Normal temperature General lower extremity: Normal ROM, Normal temperature, Normal weight bearing. No: Talat's sign Knee: Tender, Pain with ROM Calf: Tender, Other - Erythematous edematous Ankle: Tender - Erythematous, Edema - Neurological Neuro grossly intact: Yes Cognition: Normal Orientation: AAOx4 [place] Coma Scale Eye Opening: Spontaneous [place] Coma Scale Verbal: Oriented [place] Coma Scale Motor: Obeys Commands [place] Coma Scale Total: 15 Speech: Normal Motor strength normal: LUE, RUE, LLE, RLE Sensory: Normal - Psychological Associated symptoms: Normal affect, Normal mood - Skin Skin Temperature: Warm Skin Moisture: Dry Skin Color: Normal Course - Re-evaluation Re-evalutation: 07/03/19 23:41 Venous Doppler was negative white count is about 17 I had discussed this patient with Dr. Dumont earlier he recommended starting on vancomycin. He was started on 2 g vancomycin IV. He is also been started on Rocephin. His lactic acid was 1.6. His glucose was 169. He does have IV fluids and IV antibiotics running. I have consulted Dr. cabral the hospitalist and he will be admitted to medical floor for cellulitis of the left lower extremity with diabetes. Admission was accepted. - Vital Signs Vital signs: Temp Pulse Resp BP Pulse Ox 99.4 F 120 H 35 H 126/53 H 95 07/04/19 03:49 07/03/19 19:58 07/04/19 05:01 07/04/19 05:01 07/04/19 05:01 - Laboratory Result Diagrams: 07/03/19 20:56 07/03/19 20:56 Laboratory results interpreted by me: 07/03/19 07/03/19 07/03/19 20:56 20:56 20:56 WBC 17.6 H Seg Neuts % (Manual) 86 H Band Neutrophils % 6 H Lymphocytes % (Manual) 6 L Monocytes % (Manual) 2 L Abs Neuts (Manual) 16.2 H VBG pH 7.46 H Sodium 134.2 L Chloride 94 L Glucose 163 H POC Glucose Total Protein 8.3 H Urine Urobilinogen Leukocyte Esterase Rfl 07/03/19 07/03/19 21:20 22:25 WBC Seg Neuts % (Manual) Band Neutrophils % Lymphocytes % (Manual) Monocytes % (Manual) Abs Neuts (Manual) VBG pH Sodium Chloride Glucose POC Glucose 169 H Total Protein Urine Urobilinogen 2.0 H Leukocyte Esterase Rfl TRACE H - Diagnostic Test Radiology reviewed: Reports reviewed - EKG Interpretation by Me EKG shows normal: Sinus rhythm Rate: Tachycardia [place]/QRS: Left axis deviation Discharge - Discharge Clinical Impression: Left leg cellulitis Diabetes Qualifiers: Diabetes mellitus type: type 2 Diabetes mellitus [facility] insulin use: without intermediate project manager use Diabetes mellitus complication status: with hyperglycemia Qualified Code(s): E11.65 - Type 2 diabetes mellitus with hyperglycemia Disposition: ADMITTED INPATIENT Admitting Provider: Alis (Hospitalist) Unit Admitted: Medical Floor
[2019-07-03 21:34] LABS: INTERNATIONAL RATION (INR) 1.09; PROTHROMBIN TIME 14.1 SEC (11.4-15.4)
[2019-07-03] MEDS ORDERED: VANCOMYCIN HCL INJ 1000 MG VIAL IV ONE (21:43)
[2019-07-03 21:45] LABS: ALBUMIN 4.4 g/dL (3.5-5.0); ALKALINE PHOSPHATASE 80 U/L (38-126); ANION GAP 16 (5-19); ASPARTATE AMINO TRANSFERASE 19 U/L (17-59); BILIRUBIN,DIRECT 0.2 mg/dL (0.0-0.4); BILIRUBIN,TOTAL 1.1 mg/dL (0.2-1.3); BLOOD UREA NITROGEN 12 mg/dL (7-20); CALCIUM 9.6 mg/dL (8.4-10.2); CARBON DIOXIDE 24 mmol/L (22-30); CHLORIDE 94 mmol/L (98-107); GLUCOSE 163 mg/dL (75-110); POTASSIUM 3.9 mmol/L (3.6-5.0); TOTAL PROTEIN 8.3 g/dL (6.3-8.2)
[2019-07-03 21:50] LABS: VENOUS BLOOD BASE EXCESS 1.9 mmol/L; VENOUS BLOOD HCO3 25.5 mmol/L (20-32); VENOUS BLOOD PH 7.46 (7.30-7.42)
[2019-07-03 21:51] LABS: ABSOLUTE LYMPHOCYTES# (MANUAL) 1.1 10^3/uL (0.5-4.7); ABSOLUTE MONOCYTES # (MANUAL) 0.4 10^3/uL (0.1-1.4); BAND NEUTROPHILS % (MANUAL) 6 % (3-5); BASOPHILS % (MANUAL) 0 % (0-2); EOSINOPHILS % (MANUAL) 0 % (0-6); LYMPHOCYTES % (MANUAL) 6 % (13-45); MONOCYTES % (MANUAL) 2 % (3-13); RBC MORPHOLOGY COMMENT NORMO-CYTIC/CHROMIC; SEGMENTED NEUTROPHILS % (MAN) 86 % (42-78); TOTAL CELLS COUNTED 100
[2019-07-03 21:52] LABS: PLATELET COMMENT ADEQUATE
--- NOTE | 2019-07-03 22:00 | EKG REPORT ---
SEVERITY:- BORDERLINE ECG - SINUS TACHYCARDIA PROBABLE LEFT ATRIAL ABNORMALITY BORDERLINE LEFT AXIS DEVIATION : Confirmed by: Bonifacio Burks MD 03-Jul-2019 22:00:02
--- NOTE | 2019-07-03 22:20 | RADIOLOGY REPORT (SQ) ---
EXAM DESCRIPTION: [facility]: US EXTREMITY VEINS UNILATERAL CLINICAL HISTORY: 53 years Male; Left lower extremity swelling redness pain TECHNIQUE: Multiple grayscale sonographic images of the leg were obtained utilizing a high-frequency linear array transducer supplemented with color Doppler, compression and augmentation techniques. COMPARISON: 05/24/2019 FINDINGS: Left leg veins: Common femoral: normal Greater saphenous: normal upper Superficial femoral: normal mid Superficial femoral: normal lower Superficial femoral: normal Popliteal: normal Posterior tibial: normal IMPRESSION: 1. No sonographic evidence for left lower extremity deep venous thrombosis.
[2019-07-03 23:01] LABS: APPEARANCE,URINE CLEAR; BILIRUBIN,URINE NEGATIVE (NEGATIVE); COLOR,URINE YELLOW; GLUCOSE, URINE NEGATIVE (NEGATIVE); KETONES,URINE NEGATIVE (NEGATIVE); PROTEIN,URINE NEGATIVE (NEGATIVE); URINE SPECIFIC GRAVITY 1.013
[2019-07-04] MEDS ORDERED: MAG HYDROX/AL HYDROX/SIMETH SUSP 30 ML UDCUP PO PRN (00:17)
[2019-07-04] MEDS ORDERED: ONDANSETRON HCL INJ/PF 4 MG/2 ML SDV IV PRN (00:17)
[2019-07-04] MEDS ORDERED: MAGNESIUM HYDROXIDE SUSP 30 ML UDCUP PO PRN (00:17)
[2019-07-04] MEDS ORDERED: LEVALBUTEROL HCL NEB 0.63 MG/3 ML AMPUL NEB PRN (00:17)
[2019-07-04] MEDS ORDERED: MORPHINE SULFATE 10 MG/ML INJ IV PRN ×3 (00:21)
[2019-07-04] MEDS ORDERED: HYDRALAZINE HCL INJ/PF 20 MG/1 ML SDV IV PRN (00:21)
[2019-07-04] MEDS ORDERED: ACETAMINOPHEN 325 MG TABLET PO PRN (00:21)
[2019-07-04] MEDS ORDERED: NICOTINE 21 MG/24 HR PATCH.TD24 TD PRN (00:21)
[2019-07-04] MEDS ORDERED: DEXTROSE 40% GEL 15 GM TUBE PO PRN ×2 (00:30)
[2019-07-04] MEDS ORDERED: DEXTROSE 50%-WATER 25 GM/50 ML DISP.SYRIN IV PRN ×2 (00:30)
[2019-07-04] MEDS ORDERED: GLUCAGON,HUMAN RECOMB 1 MG INJ IM PRN (00:30)
[2019-07-04] MEDS ORDERED: PIPERACILLIN/TAZOBACTAM 3.375 GM VIAL IV PRN (01:00)
[2019-07-04] MEDS: PIPERACILLIN SODIUM/TAZOBACTAM 3.375 GM in NORMAL SALINE 100 ML IV SCH ×4 (02:56→21:59)
[2019-07-04] MEDS: IBUPROFEN 800 MG TABLET PO PRN (03:13)
[2019-07-04] MEDS: HEPARIN SOD (PORCINE) 5,000 UNIT/ML 1 ML VIAL SUBCUT SCH ×3 (06:02→21:59)
--- NOTE | 2019-07-04 06:24 | PDOC H&P ---
History of Present Illness Admission Date/PCP: 07/03/2019 23:54 Dr. Chaudhry Patient complains of: Painful swelling of the left leg History of Present Illness: TOMASA HERNANDEZ is a 53 year old male who presented to the emergency room with a 1 day history of painful swelling in his left leg. He admits to the gradual onset of pain swelling and redness in his left lower leg beginning yesterday. The pain is a constant aching of moderate intensity located throughout the left lower leg without radiation. Pain is worsened by attempts at weightbearing, movement and dependent position. He admits an associated subjective fever but denies other associated or accompanying signs and symptoms. He admits a prior similar episode with a cellulitis in his left leg about a month ago. He denies identification of any additional aggravating or ameliorating factors for his left lower leg pain and swelling. In the emergency room he was found to have a fever of 103 F with a white blood count of 17,600. A venous Doppler of the left lower extremity was negative. He was started on IV antibiotics and he was subsequently admitted to the hospital for further evaluation and treatment. Past Medical History Cardiac Medical History: Reports: Peripheral Vascular Disease Denies: Congestive Heart Failure, Myocardial Infarction, Hypertension Pulmonary Medical History: Reports: Pneumonia Denies: Asthma, Bronchitis, Chronic Obstructive Pulmonary Disease (COPD), Tuberculosis EENT Medical History: Denies: Cataracts, Ears - Hearing aids Neurological Medical History: Denies: Hemorrhagic CVA, Ischemic CVA, Seizures Endocrine Medical History: Reports: Diabetes Mellitus Type 2 Denies: Diabetes Mellitus Type 1, Hyperthyroidism, Hypothyroidism Renal/ Medical History: Denies: Chronic Kidney Disease, Nephrolithiasis Malignancy Medical History: Reports: None GI Medical History: Reports: Gastroesophageal Reflux Disease Denies: Cirrhosis, Crohn's Disease, Hepatitis, Peptic Ulcer Disease, Ulcerative Colitis Musculoskeltal Medical History: Denies: Arthritis, Gout Skin Medical History: Reports: Other - Cellulitis left lower extremity 1 month ago Denies: Eczema, Psoriasis Psychiatric Medical History: Reports: Tobacco Dependency Denies: Alcohol Dependency, Bipolar Disorder, Depression, Substance Abuse Traumatic Medical History: Reports: None Hematology: Denies: Anemia, Bleeding Tendencies Infectious Medical History: Reports: None Past Surgical History Past Surgical History: Reports: None Social History Information Source: Patient Lives with: Family Smoking Status: Current Every Day Smoker Electronic Cigarette use?: No Frequency of Alcohol Use: None Hx Recreational Drug Use: No Drugs: None Hx Prescription Drug Abuse: No - Advance Directive Resuscitation Status: Full Code Surrogate healthcare decision maker:: Ivanna Hernandez Family History Family History: DM. denies: CAD, Hypertension, Malignancy Parental Family History Reviewed: Yes Children Family History Reviewed: No Sibling(s) Family History Reviewed.: Yes Medication/Allergy Home Medications: Acetaminophen [Tylenol 325 mg Tablet] 650 mg PO Q4HP PRN tablet 05/26/19 Clindamycin HCl [Cleocin 300 mg Capsule] 300 mg PO Q6 #20 capsule 05/26/19 Docusate Sodium [Colace 100 mg Capsule] 100 mg PO DAILY capsule 05/26/19 Metformin HCl [Glucophage] 500 mg PO BIDACBSP PRN #60 tablet 05/26/19 Mineral Oil/Petrolatum,White [Eucerin Cream 114 Gm/Jar] 1 applic TP BID #1 jar 05/26/19 Nicotine [Nicoderm 21 mg/24 Hr Transderm Patch] 1 each TD DAILYP PRN #30 patch.td24 05/26/19 Oxycodone HCl/Acetaminophen [Percocet 5-325 mg Tablet] 1 tab PO Q6HP PRN #12 tablet 05/26/19 Allergies/Adverse Reactions: No Known Allergies Allergy (Verified 07/03/19 20:21) Review of Systems Constitutional: PRESENT: as per HPI, fever(s) - Subjective. ABSENT: chills Eyes: ABSENT: visual disturbances, other - Eye pain Ears: ABSENT: hearing changes, other - Ear pain Nose, Mouth, and Throat: ABSENT: headache(s), mouth pain, sore throat Cardiovascular: ABSENT: chest pain, palpitations Respiratory: ABSENT: cough, dyspnea Gastrointestinal: ABSENT: abdominal pain, constipation, diarrhea, nausea, vomiting Genitourinary: ABSENT: dysuria, hematuria Musculoskeletal: ABSENT: back pain, joint swelling, muscle weakness Integumentary: PRESENT: as per HPI, erythema - Erythema edema and tenderness of the left lower leg. ABSENT: pruritus, rash Neurological: ABSENT: confusion, convulsions, focal weakness, memory loss, syncope Psychiatric: ABSENT: anxiety, depression Endocrine: ABSENT: cold intolerance, heat intolerance Hematologic/Lymphatic: ABSENT: easy bleeding, easy bruising Allergic/Immunologic: ABSENT: seasonal rhinorrhea Physical Exam Vital Signs: Temp Pulse Resp BP Pulse Ox 100.9 F H 120 H 35 H 144/71 H 95 07/03/19 22:01 07/03/19 19:58 07/03/19 22:01 07/03/19 22:01 07/03/19 22:01 Intake & Output 07/01/19 07/02/19 07/03/19 23:59 23:59 23:59 Weight 124.5 kg General appearance: PRESENT: no acute distress, cooperative Head exam: PRESENT: atraumatic, normocephalic Eye exam: PRESENT: conjunctiva pink. ABSENT: conjunctival injection, scleral icterus Ear exam: PRESENT: normal external ear exam. ABSENT: bleeding, drainage Mouth exam: PRESENT: dry mucosa, neck supple Neck exam: ABSENT: thyromegaly, tracheal deviation Respiratory exam: PRESENT: clear to auscultation hero, symmetrical, unlabored Cardiovascular exam: PRESENT: RRR. ABSENT: clicks, gallop, rubs Pulses: PRESENT: normal radial pulses, normal dorsalis pedis pul Vascular exam: PRESENT: normal capillary refill. ABSENT: pallor GI/Abdominal exam: PRESENT: normal bowel sounds, soft Rectal exam: PRESENT: deferred Extremities exam: PRESENT: tenderness - With erythema and edema of the left lower leg. ABSENT: joint swelling, pedal edema Musculoskeletal exam: ABSENT: deformity, dislocation Neurological exam: PRESENT: alert, oriented to person, oriented to place, oriented to time, oriented to situation, CN II-XII grossly intact. ABSENT: motor sensory deficit Psychiatric exam: PRESENT: appropriate affect, normal mood Skin exam: PRESENT: dry, erythema - Erythema edema and tenderness to palpation involving the left lower leg, intact, warm. ABSENT: jaundice, rash, urticaria Results Laboratory Results: 07/03/19 20:56 07/03/19 20:56 07/03/19 07/03/19 07/03/19 20:56 20:56 20:56 WBC 17.6 H RBC 4.86 Hgb 15.1 Hct 43.7 MCV 90 MCH 31.0 MCHC 34.5 RDW 13.9 Plt Count 225 Seg Neutrophils % Not Reportable VBG pH 7.46 H VBG pCO2 37.0 VBG HCO3 25.5 VBG Base Excess 1.9 Sodium 134.2 L Potassium 3.9 Chloride 94 L Carbon Dioxide 24 Anion Gap 16 BUN 12 Creatinine 1.13 Est GFR ( Amer) > 60 Glucose 163 H Lactic Acid Calcium 9.6 Total Bilirubin 1.1 AST 19 Alkaline Phosphatase 80 Total Protein 8.3 H Albumin 4.4 Urine Color Urine Appearance Urine pH Ur Specific [place] Urine Protein Urine Glucose (UA) Urine Ketones Urine Blood Urine RBC (Auto) 07/03/19 07/03/19 20:56 22:25 WBC RBC Hgb Hct MCV MCH MCHC RDW Plt Count Seg Neutrophils % VBG pH VBG pCO2 VBG HCO3 VBG Base Excess Sodium Potassium Chloride Carbon Dioxide Anion Gap BUN Creatinine Est GFR ( Amer) Glucose Lactic Acid 1.6 Calcium Total Bilirubin AST Alkaline Phosphatase Total Protein Albumin Urine Color YELLOW Urine Appearance CLEAR Urine pH 6.0 Ur Specific [place] 1.013 Urine Protein NEGATIVE Urine Glucose (UA) NEGATIVE Urine Ketones NEGATIVE Urine Blood NEGATIVE Urine RBC (Auto) 0 Impressions: Venous Doppler Study 07/03/19 21:28 IMPRESSION: 1. No sonographic evidence for left lower extremity deep venous thrombosis. Assessment and Plan - Diagnosis (1) Left leg cellulitis Is this a current diagnosis for this admission?: Yes (2) Diabetes mellitus type 2 in obese Is this a current diagnosis for this admission?: Yes (3) Peripheral vascular disease in diabetes mellitus Is this a current diagnosis for this admission?: Yes (4) Tobacco dependence Is this a current diagnosis for this admission?: Yes (5) Obesity Qualifiers: Obesity type: due to excess calories Obesity classification: adult class 2 (BMI 35 - 39.9) Is this a current diagnosis for this admission?: Yes - Plan Summary Summary: Patient will be admitted to the medical floor where he will receive routine supportive and symptomatic cares. His cellulitis be treated with IV antibiotics utilizing vancomycin and Zosyn. He will use morphine sulfate 2 to 4 mg IV every 2 hours on a as needed basis for control of pain. He will be on a cardiac and diabetic restricted diet. He will have Accu-Cheks performed before meals and at bedtime with sliding scale insulin for hyperglycemic coverage and a hypoglycemic protocol in place. He will be continued on his usual medical regiment as soon as his medication list has been verified and reconciled. Smoking cessation is advised and counseled briefly at the bedside. A nicotine replacement patch is available for the patient's use, if desired. - Time Time Spent with patient: 15-24 minutes Smoking Cessation Education: 3 to 10 minutes Medications reviewed and adjusted accordingly: Yes Anticipated discharge: Home - Inpatient Certification Based on my medical assessment, after consideration of the patient's comorbidities, presenting symptoms, or acuity I expect that the services needed warrant INPATIENT care.: Yes I certify that my determination is in accordance with my understanding of Medicare's requirements for reasonable and necessary INPATIENT services [42 CFR 412.3e].: Yes Medical Necessity: Need Close Monitoring Due to Risk of Patient Decompensation, Need for Pain Control, Need for IV Antibiotics
[2019-07-04] MEDS: METFORMIN HCL 500 MG TABLET PO SCH ×2 (09:46→17:32)
[2019-07-04] MEDS: INSULIN REG, HUMAN 100 UNIT/ML 3 ML VIAL (PYX) SUBCUT SCH ×4 (09:47→22:05)
[2019-07-04] MEDS ORDERED: VANCOMYCIN HCL INJ 1000 MG VIAL IV SCH (10:00)
[2019-07-04] MEDS: DOCUSATE SODIUM 100 MG CAPSULE PO SCH ×2 (11:56→17:59)
[2019-07-04] MEDS: FAMOTIDINE 20 MG TABLET PO SCH ×2 (11:56→21:59)
[2019-07-04] MEDS: VANCOMYCIN HCL 1,250 MG in DEXTROSE 5%-WATER 250 ML IV SCH (16:08)
--- NOTE | 2019-07-04 18:52 | PDOC PROGRESS REPORT ---
Subjective Progress Note for:: 07/04/19 Subjective:: Patient states that his leg feels a little bit better since IV antibiotics were started. Of note patient did endorse some improvement with clindamycin on prior visit for later recurred. 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 Reason For Visit: CELLULITIS LEFT LOWER LEG EXTREMITY Physical Exam Vital Signs: Temp Pulse Resp BP Pulse Ox 101.3 F H 100 30 H 136/63 H 97 07/04/19 15:29 07/04/19 13:13 07/04/19 17:01 07/04/19 17:01 07/04/19 17:01 Intake & Output 07/03/19 07/04/19 07/05/19 06:59 06:59 06:59 Intake Total 4130 450 Output Total 1600 Balance 2530 450 Weight 124.5 kg General appearance: PRESENT: no acute distress, cooperative Neck exam: ABSENT: JVD Respiratory exam: PRESENT: clear to auscultation hero, symmetrical, tachypnea, unlabored. ABSENT: wheezes Cardiovascular exam: PRESENT: RRR, +S1, +S2. ABSENT: tachycardia GI/Abdominal exam: PRESENT: normal bowel sounds, soft. ABSENT: rebound, rigid, tenderness Extremities exam: PRESENT: other - Significant erythema in patient's left lower extremity all the way up to the knee without any active drainage Neurological exam: PRESENT: alert, awake, oriented to person, oriented to place, oriented to time, oriented to situation Results Laboratory Results: 07/03/19 20:56 07/03/19 20:56 07/03/19 07/03/19 07/03/19 20:56 20:56 20:56 WBC 17.6 H RBC 4.86 Hgb 15.1 Hct 43.7 MCV 90 MCH 31.0 MCHC 34.5 RDW 13.9 Plt Count 225 Seg Neutrophils % Not Reportable VBG pH 7.46 H VBG pCO2 37.0 VBG HCO3 25.5 VBG Base Excess 1.9 Sodium 134.2 L Potassium 3.9 Chloride 94 L Carbon Dioxide 24 Anion Gap 16 BUN 12 Creatinine 1.13 Est GFR ( Amer) > 60 Glucose 163 H Lactic Acid Calcium 9.6 Total Bilirubin 1.1 AST 19 Alkaline Phosphatase 80 Total Protein 8.3 H Albumin 4.4 Urine Color Urine Appearance Urine pH Ur Specific [place] Urine Protein Urine Glucose (UA) Urine Ketones Urine Blood Urine RBC (Auto) 07/03/19 07/03/19 07/03/19 20:56 22:25 23:50 WBC RBC Hgb Hct MCV MCH MCHC RDW Plt Count Seg Neutrophils % VBG pH VBG pCO2 VBG HCO3 VBG Base Excess Sodium Potassium Chloride Carbon Dioxide Anion Gap BUN Creatinine Est GFR ( Amer) Glucose Lactic Acid 1.6 1.6 Calcium Total Bilirubin AST Alkaline Phosphatase Total Protein Albumin Urine Color YELLOW Urine Appearance CLEAR Urine pH 6.0 Ur Specific [place] 1.013 Urine Protein NEGATIVE Urine Glucose (UA) NEGATIVE Urine Ketones NEGATIVE Urine Blood NEGATIVE Urine RBC (Auto) 0 07/04/19 02:30 WBC RBC Hgb Hct MCV MCH MCHC RDW Plt Count Seg Neutrophils % VBG pH VBG pCO2 VBG HCO3 VBG Base Excess Sodium Potassium Chloride Carbon Dioxide Anion Gap BUN Creatinine Est GFR ( Amer) Glucose Lactic Acid 1.6 Calcium Total Bilirubin AST Alkaline Phosphatase Total Protein Albumin Urine Color Urine Appearance Urine pH Ur Specific [place] Urine Protein Urine Glucose (UA) Urine Ketones Urine Blood Urine RBC (Auto) Impressions: Venous Doppler Study 07/03/19 21:28 IMPRESSION: 1. No sonographic evidence for left lower extremity deep venous thrombosis. Assessment and Plan - Diagnosis (1) Left leg cellulitis Is this a current diagnosis for this admission?: Yes Plan: Continue with vancomycin and Zosyn for now Follow blood cultures Area demarcated Patient seems fungal infection of the toes which may be a source of bacterial entry (2) Diabetes mellitus type 2 in obese Is this a current diagnosis for this admission?: Yes Plan: Metformin and sliding scale insulin. Continue Accu-Cheks. (3) Peripheral vascular disease in diabetes mellitus Is this a current diagnosis for this admission?: Yes (4) Tobacco dependence Is this a current diagnosis for this admission?: Yes Plan: Continue replacement. Smoking cessation counselled (5) Tachypnea Is this a current diagnosis for this admission?: Yes Plan: Patient does not appear in distress though tachypneic on vital signs Check chest x-ray - Time Time Spent with patient: 15-24 minutes
--- NOTE | 2019-07-04 19:17 | RADIOLOGY REPORT (SQ) ---
EXAM DESCRIPTION: CHEST 2 VIEWS COMPLETED DATE/TIME: 07/04/2019 7:08 pm REASON FOR STUDY: tachypnea COMPARISON: None. EXAM PARAMETERS: NUMBER OF VIEWS: two views TECHNIQUE: Digital Frontal and Lateral radiographic views of the chest acquired. RADIATION DOSE: NA LIMITATIONS: none FINDINGS: LUNGS AND PLEURA: No opacities, masses or pneumothorax. No pleural effusion. MEDIASTINUM AND HILAR STRUCTURES: No masses or contour abnormalities. HEART AND VASCULAR STRUCTURES: Heart normal size. No evidence for failure. BONES: No acute findings. HARDWARE: None in the chest. OTHER: No other significant finding. IMPRESSION: NO ACUTE RADIOGRAPHIC FINDING IN THE CHEST. TECHNICAL DOCUMENTATION: JOB ID: [id number] [employer]- All Rights Reserved Reading location - IP/workstation name: [email or web address]
[2019-07-05] MEDS: VANCOMYCIN HCL 1,250 MG in DEXTROSE 5%-WATER 250 ML IV SCH ×4 (02:49→18:22)
[2019-07-05] MEDS: PIPERACILLIN SODIUM/TAZOBACTAM 3.375 GM in NORMAL SALINE 100 ML IV SCH ×4 (04:42→20:33)
[2019-07-05] MEDS: HEPARIN SOD (PORCINE) 5,000 UNIT/ML 1 ML VIAL SUBCUT SCH ×3 (06:25→21:08)
[2019-07-05 07:20] LABS: HEMATOCRIT 35.1 % (37.9-51.0); MEAN CORPUSCULAR HEMOGLOBIN 31.1 pg (27.0-33.4); MEAN CORPUSCULAR HGB CONC 34.7 g/dL (32.0-36.0); MEAN CORPUSCULAR VOLUME 90 fl (80-97); PLATELET COUNT 180 10^3/uL (150-450); RED CELL DISTRIBUTION WIDTH 14.1 % (11.5-14.0); WHITE BLOOD COUNT 8.7 10^3/uL (4.0-10.5)
[2019-07-05 07:21] LABS: HEMOGLOBIN 12.2 g/dL (13.5-17.0)
[2019-07-05 07:33] LABS: ANION GAP 11 (5-19); BLOOD UREA NITROGEN 11 mg/dL (7-20); CALCIUM 8.7 mg/dL (8.4-10.2); CARBON DIOXIDE 23 mmol/L (22-30); CHLORIDE 103 mmol/L (98-107); CHOLESTEROL 125.62 mg/dL (0-200); GLUCOSE 102 mg/dL (75-110); POTASSIUM 3.8 mmol/L (3.6-5.0); TRIGLYCERIDES 136 mg/dL (<150)
[2019-07-05 07:43] LABS: DIRECT LDL 78 mg/dL (<100)
[2019-07-05] MEDS: INSULIN REG, HUMAN 100 UNIT/ML 3 ML VIAL (PYX) SUBCUT SCH ×2 (08:52→22:58)
[2019-07-05] MEDS: METFORMIN HCL 500 MG TABLET PO SCH ×2 (08:52→18:19)
[2019-07-05] MEDS: NORMAL SALINE 1000 ML 1,000 ML IV PRN (09:00)
[2019-07-05] MEDS: FAMOTIDINE 20 MG TABLET PO SCH ×2 (10:40→21:08)
[2019-07-05] MEDS: DOCUSATE SODIUM 100 MG CAPSULE PO SCH ×2 (10:40→18:15)
--- NOTE | 2019-07-05 14:45 | PDOC PROGRESS REPORT ---
Subjective Progress Note for:: 07/05/19 Subjective:: Patient complains of pain in his leg when he ambulates he otherwise is fine has required pain medications. Denies any fevers. States that he is breathing comfortably. Reason For Visit: CELLULITIS LEFT LOWER LEG EXTREMITY Physical Exam Vital Signs: Temp Pulse Resp BP Pulse Ox 98.0 F 85 16 133/73 H 98 07/05/19 12:00 07/05/19 13:52 07/05/19 13:52 07/05/19 12:00 07/05/19 13:52 Intake & Output 07/04/19 07/05/19 07/06/19 06:59 06:59 06:59 Intake Total 4130 1700 480 Output Total 1600 Balance 2530 1700 480 Weight 124.5 kg 120.4 kg General appearance: PRESENT: no acute distress, cooperative Neck exam: ABSENT: JVD Respiratory exam: PRESENT: clear to auscultation hero Extremities exam: PRESENT: other - Erythema in left lower extremity up to the knee without any extension beyond the demarcated region. Showing some improvement Results Laboratory Results: 07/05/19 06:20 07/05/19 06:20 07/05/19 07/05/19 06:20 06:20 WBC 8.7 RBC 3.90 L Hgb 12.2 L D Hct 35.1 L MCV 90 MCH 31.1 MCHC 34.7 RDW 14.1 H Plt Count 180 Sodium 136.7 L Potassium 3.8 Chloride 103 Carbon Dioxide 23 Anion Gap 11 BUN 11 Creatinine 0.99 Est GFR ( Amer) > 60 Glucose 102 Calcium 8.7 Magnesium 2.0 Triglycerides 136 Cholesterol 125.62 LDL Cholesterol Direct 78 VLDL Cholesterol 27.0 HDL Cholesterol 20 L Impressions: Venous Doppler Study 07/03/19 21:28 IMPRESSION: 1. No sonographic evidence for left lower extremity deep venous thrombosis. Chest X-Ray 07/04/19 00:00 IMPRESSION: NO ACUTE RADIOGRAPHIC FINDING IN THE CHEST. Assessment and Plan - Diagnosis (1) Left leg cellulitis Is this a current diagnosis for this admission?: Yes Plan: Continue with vancomycin and Zosyn for now Follow blood cultures Area demarcated Patient seems fungal infection of the toes which may be a source of bacterial entry (2) Diabetes mellitus type 2 in obese Is this a current diagnosis for this admission?: Yes Plan: Metformin and sliding scale insulin. Continue Accu-Cheks. (3) Peripheral vascular disease in diabetes mellitus Is this a current diagnosis for this admission?: Yes Plan: Documented on admission H&P. I do not see any ABIs done in this institution. outpatient follow-up with PCP (4) Tobacco dependence Is this a current diagnosis for this admission?: Yes Plan: Continue replacement. Smoking cessation counselled (5) Tachypnea Is this a current diagnosis for this admission?: Yes Plan: This was likely just an error in technique used to read vital signs in the ER yesterday as they were documented to be consistently high in the 25-30 range. I have not every encounter had, patient was notably not tachypneic at all and never in any respiratory distress 2 view chest x-ray is also negative. - Time Time Spent with patient: Less than 15 minutes - Inpatient Certification Medical Necessity: Failure to Improve With Outpatient Therapy, Need for IV Antibiotics
[2019-07-05 22:37] LABS: VANCOMYCIN,TROUGH 18.2 ug/mL (5.0-20.0)
[2019-07-06] MEDS: VANCOMYCIN HCL 1,250 MG in DEXTROSE 5%-WATER 250 ML IV SCH ×3 (01:28→18:15)
[2019-07-06] MEDS: PIPERACILLIN SODIUM/TAZOBACTAM 3.375 GM in NORMAL SALINE 100 ML IV SCH ×4 (03:46→20:07)
[2019-07-06] MEDS: NORMAL SALINE 1000 ML 1,000 ML IV PRN ×2 (05:49→21:31)
[2019-07-06] MEDS: HEPARIN SOD (PORCINE) 5,000 UNIT/ML 1 ML VIAL SUBCUT SCH ×3 (05:50→21:28)
[2019-07-06] MEDS: METFORMIN HCL 500 MG TABLET PO SCH ×2 (07:54→17:20)
[2019-07-06] MEDS: INSULIN REG, HUMAN 100 UNIT/ML 3 ML VIAL (PYX) SUBCUT SCH ×5 (07:58→21:22)
[2019-07-06] MEDS: IBUPROFEN 800 MG TABLET PO PRN (09:06)
[2019-07-06] MEDS: FAMOTIDINE 20 MG TABLET PO SCH ×2 (09:06→21:28)
[2019-07-06] MEDS: DOCUSATE SODIUM 100 MG CAPSULE PO SCH ×2 (09:06→17:20)
[2019-07-06 09:58] LABS: VANCOMYCIN,TROUGH 16.4 ug/mL (5.0-20.0)
--- NOTE | 2019-07-06 18:48 | PDOC PROGRESS REPORT ---
Subjective Progress Note for:: 07/06/19 Subjective:: Patient is doing well and pain in his lower extremity has improved. Reason For Visit: CELLULITIS LEFT LOWER LEG EXTREMITY Physical Exam Vital Signs: Temp Pulse Resp BP Pulse Ox 97.9 F 67 18 125/66 100 07/06/19 15:20 07/06/19 15:20 07/06/19 15:20 07/06/19 15:20 07/06/19 15:20 Intake & Output 07/05/19 07/06/19 07/07/19 06:59 06:59 06:59 Intake Total 1700 3830 1768 Output Total 7 Balance 1700 3823 1768 Weight 120.4 kg 122 kg General appearance: PRESENT: no acute distress, cooperative Neck exam: ABSENT: JVD Respiratory exam: PRESENT: clear to auscultation hero Cardiovascular exam: PRESENT: +S1, +S2 Extremities exam: PRESENT: other - Redness and lower extremity has improved significantly as compared to yesterday Results Laboratory Results: 07/05/19 06:20 07/06/19 09:13 07/06/19 09:13 Creatinine 0.93 Est GFR ( Amer) > 60 Impressions: Venous Doppler Study 07/03/19 21:28 IMPRESSION: 1. No sonographic evidence for left lower extremity deep venous thrombosis. Chest X-Ray 07/04/19 00:00 IMPRESSION: NO ACUTE RADIOGRAPHIC FINDING IN THE CHEST. Assessment and Plan - Diagnosis (1) Left leg cellulitis Is this a current diagnosis for this admission?: Yes Plan: Continue with vancomycin and Zosyn for now Follow blood cultures Area demarcated showing significant improvement Patient seems fungal infection of the toes which may be a source of bacterial entry--instructed to make an appointment with a fibre cement moulder today via his insurance (2) Diabetes mellitus type 2 in obese Is this a current diagnosis for this admission?: Yes Plan: Metformin and sliding scale insulin. Continue Accu-Cheks. (3) Peripheral vascular disease in diabetes mellitus Is this a current diagnosis for this admission?: Yes Plan: Documented on admission H&P. I do not see any ABIs done in this institution. outpatient follow-up with PCP (4) Tobacco dependence Is this a current diagnosis for this admission?: Yes Plan: Continue replacement. Smoking cessation counselled - Time Time Spent with patient: Less than 15 minutes
[2019-07-07] MEDS: VANCOMYCIN HCL 1,250 MG in DEXTROSE 5%-WATER 250 ML IV SCH ×2 (01:07→10:14)
[2019-07-07] MEDS: PIPERACILLIN SODIUM/TAZOBACTAM 3.375 GM in NORMAL SALINE 100 ML IV SCH ×2 (02:14→08:02)
[2019-07-07] MEDS: HEPARIN SOD (PORCINE) 5,000 UNIT/ML 1 ML VIAL SUBCUT SCH (05:09)
[2019-07-07] MEDS: NORMAL SALINE 1000 ML 1,000 ML IV PRN (06:51)
[2019-07-07] MEDS: INSULIN REG, HUMAN 100 UNIT/ML 3 ML VIAL (PYX) SUBCUT SCH ×2 (08:00→13:54)
[2019-07-07] MEDS: METFORMIN HCL 500 MG TABLET PO SCH (08:02)
[2019-07-07] MEDS: FAMOTIDINE 20 MG TABLET PO SCH (10:25)
[2019-07-07] MEDS: DOCUSATE SODIUM 100 MG CAPSULE PO SCH (10:25)
--- NOTE | 2019-07-07 12:37 | PDOC DISCHARGE SUMMARY ---
Impression - Admit/DC Date/PCP Admission Date/Primary Care Provider: 07/04/19 00:00 Discharge Date: 07/07/19 - Discharge Diagnosis (1) Left leg cellulitis Is this a current diagnosis for this admission?: Yes (2) Diabetes mellitus type 2 in obese Is this a current diagnosis for this admission?: Yes (3) Peripheral vascular disease in diabetes mellitus Is this a current diagnosis for this admission?: Yes (4) Tobacco dependence Is this a current diagnosis for this admission?: Yes (5) Onychomycosis Is this a current diagnosis for this admission?: Yes - Assessment Summary: Patient presented with worsening lower extremity swelling and redness involving his left leg. He has just completed treatment with clindamycin with some improvement but later worsened after treatment was completed. Patient was also found to be febrile. On evaluation, CBC revealed leukocytosis. Lower extremity ultrasound showed no evidence of DVT. Patient was started on IV antibiotics with vancomycin and Zosyn for broad coverage given his diabetes. Blood cultures were obtained which were negative. Further examination of patient reveals that patient has what appears to be onychomycosis in his left foot toenails which is likely to be the source of skin breakdown allowing for infection causing cellulitis. Patient does not see a collections professional despite his diabetes. Patient's leukocytosis has resolved and he has been afebrile for the past 2 days. Patient's demarcated region of cellulitis is showing significant improvement at this time but may take quite some time before it heals fully. Patient is being discharged on Bactrim and Augmentin to take for 10 more days to complete a two- week course of therapy. Patient has also been given strict instructions to see a collections professional soon as possible for debridement of his toenails and calluses in his feet. At this time, I will hold off on starting patient on 12 weekly because of terbinafine and rather just have patient see a collections professional for debridement. Patient is being discharged in stable conditions. - Additional Information Resuscitation Status: Full Code Discharge Diet: Diabetic Discharge Activity: Activity As Tolerated Referrals: [facility] [Outside] - 07/25/19 10:30 am Prescriptions: Ibuprofen [Advil] 200 mg PO TIDP PRN #18 capsule PRN Reason: For Pain Amoxicillin/Potassium Clav [Augmentin 500-125 Tablet] 1 each PO BID 10 Days tablet Sulfamethoxazole/Trimethoprim [Bactrim Ds Tablet] 2 each PO BID 10 Days tablet Home Medications: Metformin HCl [Glucophage 500 mg Tablet] 500 mg PO BID 07/04/19 Acetaminophen [Tylenol 325 mg Tablet] 650 mg PO Q4HP PRN tablet 07/07/19 Amoxicillin/Potassium Clav [Augmentin 500-125 Tablet] 1 each PO BID 10 Days tablet 07/07/19 Ibuprofen [Advil] 200 mg PO TIDP PRN #18 capsule 07/07/19 Sulfamethoxazole/Trimethoprim [Bactrim Ds Tablet] 2 each PO BID 10 Days tablet 07/07/19 History of Present Illiness History of Present Illness: TOMASA HERNANDEZ is a 53 year old male who presented to the emergency room with a 1 day history of painful swelling in his left leg. He admits to the gradual onset of pain swelling and redness in his left lower leg beginning yesterday. The pain is a constant aching of moderate intensity located throughout the left lower leg without radiation. Pain is worsened by attempts at weightbearing, movement and dependent position. He admits an associated subjective fever but denies other associated or accompanying signs and symptoms. He admits a prior similar episode with a cellulitis in his left leg about a month ago. He denies identification of any additional aggravating or ameliorating factors for his left lower leg pain and swelling. In the emergency room he was found to have a fever of 103 F with a white blood count of 17,600. A venous Doppler of the left lower extremity was negative. He was started on IV antibiotics and he was subsequently admitted to the hospital for further evaluation and treatment. Physical Exam Vital Signs: Temp Pulse Resp BP Pulse Ox 98.0 F 72 16 132/76 H 97 07/07/19 11:22 07/07/19 11:22 07/07/19 11:22 07/07/19 11:22 07/07/19 11:22 Intake & Output 07/06/19 07/07/19 07/08/19 06:59 06:59 06:59 Intake Total 3830 5953 690 Output Total 7 Balance 3823 5953 690 Weight 122 kg 124.6 kg General appearance: PRESENT: no acute distress, cooperative Respiratory exam: PRESENT: clear to auscultation hero, unlabored. ABSENT: tachypnea, wheezes Cardiovascular exam: PRESENT: +S1, +S2 GI/Abdominal exam: PRESENT: normal bowel sounds, soft. ABSENT: rigid, tenderness Extremities exam: PRESENT: other - Improvement in swelling within the demarcated areas of his left lower extremity Results Laboratory Results: WBC 8.7 10^3/uL (4.0-10.5) 07/05/19 06:20 RBC 3.90 10^6/uL (4.35-5.55) L 07/05/19 06:20 Hgb 12.2 g/dL (13.5-17.0) L D 07/05/19 06:20 Hct 35.1 % (37.9-51.0) L 07/05/19 06:20 MCV 90 fl (80-97) 07/05/19 06:20 MCH 31.1 pg (27.0-33.4) 07/05/19 06:20 MCHC 34.7 g/dL (32.0-36.0) 07/05/19 06:20 RDW 14.1 % (11.5-14.0) H 07/05/19 06:20 Plt Count 180 10^3/uL (150-450) 07/05/19 06:20 Lymph % (Auto) Not Reportable 07/03/19 20:56 [place] % (Auto) Not Reportable 07/03/19 20:56 Eos % (Auto) Not Reportable 07/03/19 20:56 Baso % (Auto) Not Reportable 07/03/19 20:56 Absolute Neuts (auto) Not Reportable 07/03/19 20:56 Absolute Lymphs (auto) Not Reportable 07/03/19 20:56 Absolute Monos (auto) Not Reportable 07/03/19 20:56 Absolute Eos (auto) Not Reportable 07/03/19 20:56 Absolute Basos (auto) Not Reportable 07/03/19 20:56 Total Counted 100 07/03/19 20:56 Seg Neutrophils % Not Reportable 07/03/19 20:56 Seg Neuts % (Manual) 86 % (42-78) H 07/03/19 20:56 Band Neutrophils % 6 % (3-5) H 07/03/19 20:56 Lymphocytes % (Manual) 6 % (13-45) L 07/03/19 20:56 Monocytes % (Manual) 2 % (3-13) L 07/03/19 20:56 Eosinophils % (Manual) 0 % (0-6) 07/03/19 20:56 Basophils % (Manual) 0 % (0-2) 07/03/19 20:56 Abs Neuts (Manual) 16.2 10^3/uL (1.7-8.2) H 07/03/19 20:56 Abs Lymphs (Manual) 1.1 10^3/uL (0.5-4.7) 07/03/19 20:56 Abs Monocytes (Manual) 0.4 10^3/uL (0.1-1.4) 07/03/19 20:56 Absolute Eos (Manual) 0.0 10^3/uL (0.0-0.6) 07/03/19 20:56 Abs Basophils (Manual) 0.0 10^3/uL (0.0-0.2) 07/03/19 20:56 Platelet Comment ADEQUATE 07/03/19 20:56 RBC Morph Comment NORMO-CYTIC/CHROMIC 07/03/19 20:56 PT 14.1 SEC (11.4-15.4) 07/03/19 20:56 INR 1.09 07/03/19 20:56 VBG pH 7.46 (7.30-7.42) H 07/03/19 20:56 VBG pCO2 37.0 mmHg (35-63) 07/03/19 20:56 VBG HCO3 25.5 mmol/L (20-32) 07/03/19 20:56 VBG Base Excess 1.9 mmol/L 07/03/19 20:56 Sodium 136.7 mmol/L (137-145) L 07/05/19 06:20 Potassium 3.8 mmol/L (3.6-5.0) 07/05/19 06:20 Chloride 103 mmol/L (98-107) 07/05/19 06:20 Carbon Dioxide 23 mmol/L (22-30) 07/05/19 06:20 Anion Gap 11 (5-19) 07/05/19 06:20 BUN 11 mg/dL (7-20) 07/05/19 06:20 Creatinine 0.93 mg/dL (0.52-1.25) 07/06/19 09:13 Est GFR ( Amer) > 60 (>60) 07/06/19 09:13 Est GFR (MDRD) Non-Af > 60 (>60) 07/06/19 09:13 Glucose 102 mg/dL (75-110) 07/05/19 06:20 POC Glucose 135 mg/dL (70-110) H 07/07/19 11:23 Lactic Acid 1.6 mmol/L (0.7-2.1) 07/04/19 02:30 Calcium 8.7 mg/dL (8.4-10.2) 07/05/19 06:20 Magnesium 2.0 mg/dL (1.6-2.3) 07/05/19 06:20 Total Bilirubin 1.1 mg/dL (0.2-1.3) 07/03/19 20:56 Direct Bilirubin 0.2 mg/dL (0.0-0.4) 07/03/19 20:56 Neonat Total Bilirubin Not Reportable 07/03/19 20:56 Neonat Direct Bilirubin Not Reportable 07/03/19 20:56 Neonat Indirect Bili Not Reportable 07/03/19 20:56 AST 19 U/L (17-59) 07/03/19 20:56 ALT 25 U/L (<50) 07/03/19 20:56 Alkaline Phosphatase 80 U/L (38-126) 07/03/19 20:56 Total Protein 8.3 g/dL (6.3-8.2) H 07/03/19 20:56 Albumin 4.4 g/dL (3.5-5.0) 07/03/19 20:56 Triglycerides 136 mg/dL (<150) 07/05/19 06:20 Cholesterol 125.62 mg/dL (0-200) 07/05/19 06:20 LDL Cholesterol Direct 78 mg/dL (<100) 07/05/19 06:20 VLDL Cholesterol 27.0 mg/dL (10-31) 07/05/19 06:20 HDL Cholesterol 20 mg/dL (>40) L 07/05/19 06:20 Urine Color YELLOW 07/03/19 22:25 Urine Appearance CLEAR 07/03/19 22:25 Urine pH 6.0 (5.0-9.0) 07/03/19 22:25 Ur Specific [place] 1.013 07/03/19 22:25 Urine Protein NEGATIVE mg/dL (NEGATIVE) 07/03/19 22:25 Urine Glucose (UA) NEGATIVE mg/dL (NEGATIVE) 07/03/19 22:25 Urine Ketones NEGATIVE mg/dL (NEGATIVE) 07/03/19 22:25 Urine Blood NEGATIVE (NEGATIVE) 07/03/19 22:25 Urine Nitrite (Reflex) NEGATIVE (NEGATIVE) 07/03/19 22:25 Urine Bilirubin NEGATIVE (NEGATIVE) 07/03/19 22:25 Urine Urobilinogen 2.0 mg/dL (<2.0) H 07/03/19 22:25 Leukocyte Esterase Rfl TRACE (NEGATIVE) H 07/03/19 22:25 Urine RBC (Auto) 0 /HPF 07/03/19 22:25 Urine WBC (Reflex) 2 /HPF 07/03/19 22:25 Urine Mucus (Auto) RARE /LPF 07/03/19 22:25 Urine Ascorbic Acid NEGATIVE (NEGATIVE) 07/03/19 22:25 Time Trough Drawn 0913 07/06/19 09:13 Vancomycin Trough 16.4 ug/mL (5.0-20.0) 07/06/19 09:13 Impressions: Venous Doppler Study 07/03/19 21:28 IMPRESSION: 1. No sonographic evidence for left lower extremity deep venous thrombosis. Chest X-Ray 07/04/19 00:00 IMPRESSION: NO ACUTE RADIOGRAPHIC FINDING IN THE CHEST. Plan Time Spent: Less than 30 Minutes Stroke Is this a Stroke Patient?: No Acute Heart Failure - Is this a Heart Failure Patient?: No
[2019-07-07 14:17] VITALS: BP 141/66
== END 2019-07-07 14:30 | disposition home or self-care (01) | DRG 603 ==
LOC: ER 19:35 → EH 07-04 → 4N 07-04 19:25
PROVIDERS: ADMIT Emergency Medicine; ATTEND Emergency Medicine
DX: L03.116 Cellulitis of left lower limb (principal); I73.9 Peripheral vascular disease, unspecified; E11.65 Type 2 diabetes mellitus with hyperglycemia; K21.9 Gastro-esophageal reflux disease without esophagitis; R06.82 Tachypnea, not elsewhere classified; B35.1 Tinea unguium; F17.210 Nicotine dependence, cigarettes, uncomplicated
CPT/HCPCS: 36415; 71046; 80048; 80053; 80061; 80202; 81001; 82565; 82803; 82962; 83605; 83735; 85025; 85027; 85610; 87040; 93005; 93010; 93971; 96361; 96365; 96367; 99285; 99406; J0696; J1644; J1815; J2270; J2543; J3370; J3490; J7030; J7050; J7060; J7120